=== PATIENT | female | born 1990 | race Two or more races ===

== ENCOUNTER 2021-12-31 09:48 | Inpatient (IN) | payer MEDICAID, OTHER ==
[~2021-12-31] VITALS: Ht 160 cm; Wt 102.1 kg
[2021-12-31] MEDS ORDERED: LACTATED RINGERS 1,000 ML IV SCH (10:30)
[2021-12-31] MEDS ORDERED: METHYLERGONOVINE MALEATE 0.2 MG/ML IM PRN (10:30)
[2021-12-31] MEDS: LACTATED RINGERS 1,000 ML IV SCH ×2 (11:07→12:42)
[2021-12-31 12:02] LABS: CLARITY URINE TURBID (CLEAR); COLOR URINE YELLOW (YELLOW); KETONES URINE TRACE (NEGATIVE); LEUKOCYTE ESTERASE URINE 2+ (NEGATIVE); NITRITE URINE NEGATIVE (NEGATIVE); OCCULT BLOOD URINE NEGATIVE (NEGATIVE); PH URINE 6.5 (4.5-8.0); PROTEIN URINE 1+ (NEGATIVE); SPECIFIC GRAVITY URINE 1.023 (1.005-1.030); UROBILINOGEN URINE 0.2 E.U./dL (0.2-1.0)
[2021-12-31 12:07] LABS: PARTIAL THROMBOPLASTIN TIME 24.2 sec (23.4-31.0); PROTHROMBIN TIME 10.7 sec (9.6-11.0)
[2021-12-31 12:18] LABS: BASOPHILS % 0.1 % (0.0-2.0); EOSINOPHILS % 3.7 % (0.0-5.0); HEMATOCRIT. 31.2 % (36.0-48.0); HEMOGLOBIN. 10.4 g/dL (12.0-16.0); LYMPHOCYTES % 26.6 % (20.0-50.0); MEAN CORPUSCULAR HEMOGLOBIN 26.3 pg (28.0-32.0); MEAN CORPUSCULAR VOLUME 78.8 fL (81.0-99.0); MEAN PLATELET VOLUME 8.5 fl (7.4-10.4); MONOCYTES % 4.8 % (2.0-8.0); NEUTROPHILS % 64.8 % (40.0-76.0); PLATELET 162 x1000/uL (130-400); RED BLOOD CELL COUNT 3.96 mill/uL (4.2-5.4)
[2021-12-31 12:31] LABS: *AMPHETAMINES SCREEN URINE NEGATIVE (NEGATIVE); *BARBITURATES SCREEN URINE NEGATIVE (NEGATIVE); *BENZODIAZEPINES SCREEN URINE NEGATIVE (NEGATIVE); *COCAINE SCREEN URINE NEGATIVE (NEGATIVE); CANNABINOID URINE SCREEN NEGATIVE (NEGATIVE); METHADONE URINE SCREEN NEGATIVE (NEGATIVE); OPIATES URINE SCREEN NEGATIVE (NEGATIVE); PHENCYCLIDINE URINE SCREEN NEGATIVE (NEGATIVE)
[2021-12-31] MEDS ORDERED: ONDANSETRON HCL 4MG/2ML INJ ONE ×2 (12:41)
[2021-12-31] MEDS ORDERED: DEXAMETHASONE 4MG/ML 1ML VIAL ONE (12:41)
[2021-12-31] MEDS ORDERED: MORPHINE SULFATE/PF 1MG/ML 10ML AMP ONE (12:41)
[2021-12-31] MEDS ORDERED: EPHEDRINE SULFATE 50MG/ML VIAL ONE (12:41)
[2021-12-31] MEDS ORDERED: OXYTOCIN 10 UNITS/ML 1ML ONE (12:56)
[2021-12-31] MEDS ORDERED: MORPHINE SULFATE 10 MG/ML CPJ IV PRN (13:30)
[2021-12-31] MEDS ORDERED: FENTANYL CITRATE/PF 50MCG/ML 2ML VIAL IV PRN (13:30)
[2021-12-31] MEDS ORDERED: KETOROLAC 30MG/ML VIAL IV PRN (13:30)
[2021-12-31] MEDS ORDERED: NALOXONE HCL 0.4 MG/ML 1ML VIAL IV PRN (13:30)
[2021-12-31 13:52] LABS: HEPATITIS B SURFACE ANTIGEN NEGATIVE
[2021-12-31] MEDS ORDERED: KETOROLAC 60MG/2ML VIAL IM ONE (14:06)
[2021-12-31] MEDS ORDERED: MORPHINE SULFATE 4 MG/ML CPJ (NOT FOR IM USE) IV PRN (15:15)
[2021-12-31] MEDS ORDERED: LANOLIN OINT 7GM TUBE TOP PRN (16:30)
[2021-12-31] MEDS ORDERED: ACETAMINOPHEN WITH CODEINE 300/30MG TABLET PO PRN (16:30)
[2021-12-31] MEDS ORDERED: RHO(D) IMMUNE GLOBULIN 300 MCG/SYR IM PRN (16:30)
[2021-12-31] MEDS ORDERED: IBUPROFEN 400MG TABLET PO PRN (16:30)
[2021-12-31] MEDS ORDERED: OXYTOCIN 30 UNITS/500ML NS PMX 500 ML IV SCH (16:30)
[2021-12-31] MEDS ORDERED: BISACODYL 10MG SUPP PR PRN (16:30)
[2021-12-31] MEDS ORDERED: DIPHENHYDRAMINE 25MG CAPSULE PO PRN (16:30)
[2021-12-31] MEDS ORDERED: HEMORRHOIDAL SUPP PR PRN (16:30)
[2021-12-31] MEDS: ONDANSETRON HCL 4MG/2ML INJ IV PRN ×2 (17:10→22:02)
[2021-12-31] MEDS: OXYTOCIN 30 UNITS/500ML NS PMX 500 ML IV SCH ×2 (17:15→23:20)
[2021-12-31 18:00] VITALS: BP 103/61
[2021-12-31 20:00] VITALS: BP 93/54
[2021-12-31] MEDS ORDERED: DOCUSATE SODIUM 100MG CAPSULE PO SCH (21:00)
[2021-12-31 22:00] VITALS: BP 105/59
[2021-12-31 22:46] VITALS: BP 93/54
[2021-12-31 23:45] VITALS: BP 104/60
[2022-01-01] MEDS: LACTATED RINGERS 1,000 ML IV SCH (02:38)
[2022-01-01 03:00] VITALS: BP 103/59
[2022-01-01 06:21] VITALS: BP 96/55
[2022-01-01 06:25] LABS: BASOPHILS % 0.1 % (0.0-2.0); EOSINOPHILS % 0.3 % (0.0-5.0); HEMOGLOBIN. 8.8 g/dL (12.0-16.0); LYMPHOCYTES % 10.4 % (20.0-50.0); MEAN CORPUSCULAR HEMOGLOBIN 26.7 pg (28.0-32.0); MEAN CORPUSCULAR VOLUME 78.7 fL (81.0-99.0); MEAN PLATELET VOLUME 8.6 fl (7.4-10.4); MONOCYTES % 5.7 % (2.0-8.0); NEUTROPHILS % 83.5 % (40.0-76.0); PLATELET 155 x1000/uL (130-400); RED CELL DISTRIBUTION WIDTH 15.2 % (11.6-14.6)
[2022-01-01 08:00] VITALS: BP 91/48
[2022-01-01] MEDS: SIMETHICONE 80MG TABLET CHEW PO SCH ×4 (09:21→20:28)
[2022-01-01] MEDS: MAGNESIUM/ALUMINUM HYDROXIDE/SIMETHICONE 30ML UDC PO SCH ×4 (09:21→20:27)
[2022-01-01] MEDS: FERROUS SULFATE 325MG TABLET PO SCH ×3 (09:21→18:19)
[2022-01-01] MEDS: PRENATAL VIT/FE FUMARATE/FA TABLET PO SCH (09:22)
[2022-01-01 16:00] VITALS: BP 97/64
[2022-01-01] MEDS: IBUPROFEN 800MG TABLET PO PRN (17:24)
[2022-01-01 20:00] VITALS: BP 100/51
[2022-01-02 04:20] VITALS: BP 102/58
[2022-01-02] MEDS: IBUPROFEN 800MG TABLET PO PRN (04:24)
[2022-01-02] MEDS ORDERED: IBUP-2030 PO (07:14)
[2022-01-02] MEDS ORDERED: SIME80TA16 PO (07:14)
[2022-01-02] MEDS ORDERED: MULT-1116 MT (07:14)
[2022-01-02] MEDS ORDERED: DOCU-150 PO (07:14)
[2022-01-02] MEDS ORDERED: FERR-63 PO (07:14)
[2022-01-02] MEDS: MAGNESIUM/ALUMINUM HYDROXIDE/SIMETHICONE 30ML UDC PO SCH (08:21)
[2022-01-02] MEDS: FERROUS SULFATE 325MG TABLET PO SCH (08:21)
[2022-01-02] MEDS: PRENATAL VIT/FE FUMARATE/FA TABLET PO SCH (08:21)
[2022-01-02] MEDS: SIMETHICONE 80MG TABLET CHEW PO SCH (08:22)
[2022-01-02] MEDS ORDERED: INFLUENZA VACCINE 05/PF 0.5 ML SYRINGE IM ONE (08:45)
[2022-01-02 09:09] VITALS: BP 110/60
== END 2022-01-02 11:00 | disposition home or self-care (01) | DRG 539 ==
LOC: 8 EST LDRP 09:48 → OBSVTOIN 09:49 → 8EST 17:30
PROVIDERS: ADMIT Obstetrics & Gynecology; ATTEND Obstetrics & Gynecology
PROC: 10D00Z1 Extraction of Products of Conception, Low, Open Approach (ICD-10-PCS; principal; 2021-12-31)
PROC: 0UB70ZZ Excision of Bilateral Fallopian Tubes, Open Approach (ICD-10-PCS; 2021-12-31)
DX: O34.211 Maternal care for low transverse scar from previous cesarean delivery (principal); O99.02 Anemia complicating childbirth; Z20.822 Contact with and (suspected) exposure to COVID-19; Z3A.39 39 weeks gestation of pregnancy; Z37.0 Single live birth; Z30.2 Encounter for sterilization
CPT/HCPCS: 36415; 80305; 81003; 85025; 86592; 86703; 86762; 86850; 86900; 87077; 87340; 87426; 88302; 88307; 90686; 99281; G0378; J1100; J1885; J2274; J2405; J3490; J7120; A4315; J2590